=== PATIENT | female | born 2000 | race Caucasian/White ===

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

== ENCOUNTER 2019-08-23 22:02 | Emergency (ER) | payer OTHER ==
[2019-08-23] MEDS ORDERED: fentaNYL* 50 MCG/ML 2 ML VIAL (100 MCG VIAL) IV SLOW PU ONE ×2 (22:15→23:12)
--- NOTE | 2019-08-23 22:22 | ED ---
Lower Extremity - HPI Summary HPI Summary: The patient is a 19 y/o F arriving by ambulance to [facility] with a chief complaint of sudden onset pain and visible deformity of the right ankle onset tonight. She reports that she was playing volleyball when she jumped and landed incorrectly on her feet, immediately causing pain. In the ambulance, she initially declined medication and an ice pack was placed, but then the pain increased so EMS administered 50mcg Fentanyl. EMS notes distal pulses intact. Movement aggravates the pain, and the medication helped to mildly improve the pain. She is unable to bear weight on the ankle. Currently, the aching, sharp pain is rated 7/10 in severity. She denies any head injury or LOC. She last ate at 1900 tonight. No recent illnesses. LNMP: two weeks ago. PMHx: broken ankle ( unsure of which side), left ACL repair. Nonsmoker, no EtOH, no substance use. Medications reviewed. Allergies noted. - History of Current Complaint Chief Complaint: EDExtremityLower Stated Complaint: RT ANKLE INJURY PER EMS Time Seen by Provider: 08/23/19 22:15 Hx Obtained From: Patient Mechanism Of Injury: Other - jumped and landed on the ankle incorrectly Onset of Pain: Immediate Onset/Duration: Minutes Severity Initially: Moderate Severity Currently: Moderate Pain Intensity: 7 Pain Scale Used: 0-10 Numeric Timing: Lasting Minutes Location: Is Discrete @ - right ankle Character Of Pain: Sharp, Aching Associated Signs And Symptoms: Negative: Other - head injury, LOC Aggravating Factor(s): Movement Alleviating Factor(s): Ice, Other - Fentanyl 50mcg from EMS en route Able to Bear Weight: No - Allergies/Home Medications Allergies/Adverse Reactions: Allergies Allergy/AdvReac Type Severity Reaction Status Date / Time No Known Allergies Allergy Verified 08/23/19 22:14 PMH/Surg Hx/FS Hx/Imm Hx Endocrine/Hematology History: Denies: Hx Diabetes Respiratory History: Denies: Hx Asthma Musculoskeletal History: Reports: Hx of Fracture(s) - ankle (usure of which side ) Sensory History: Denies: Hx Legally Blind, Hx Deafness Opthamlomology History: Denies: Hx Legally Blind - Surgical History Surgical History: Yes Surgery Procedure, Year, and Place: left ACL repair Infectious Disease History: No Infectious Disease History: Denies: Traveled Outside the [place] in Last 30 Days - Family History Known Family History: Negative: Blood Disorder - Social History Alcohol Use: None Hx Substance Use: No Substance Use Type: Reports: None Hx Tobacco Use: No Smoking Status (MU): Never Smoked Tobacco Review of Systems - ROS Summary Review of Systems Summary: Home Medications Medication Instructions Recorded Confirmed Type NK [No Home Medications Reported] 09/24/18 08/23/19 History Positive: Other - pain in the right ankle with visible deformity Neurological: Other - Negative: head injury, LOC All Other Systems Reviewed And Are Negative: Yes Physical Exam - Summary Physical Exam Summary: General: Well-developed, Well-nourished female. Appears in moderate discomfort. HEENT: Normocephalic, Atraumatic. Eyes: Conjuctiva normal, PERRL. Ears: TMs within normal limits. Nares: (-) discharge, (-) erythema. Oropharynx: Clear, mucous membranes moist, (-) exudates. Neck: Soft, FROM, (-) lymphadenopathy, (-) thyromegaly, (-) JVD. Cardiovascular: Normal sinus rhythm, (-) murmur. Lungs: Clear to auscultation bilaterally (-) wheezes, (-) rales, (-) rhonchi. Abdomen: Soft, non-tender, non-distended, (-) organomegaly, normal bowel sounds. Back: (-) CVA tenderness Extremities: Right ankle was severely angulated with a bony protrusion laterally and tenting, Good pulses and capitally refill distally. No edema. Skin: Warm, dry, (-) rash. Neuro: Alert and oriented x3, no focal deficits. Psychiatric: Mood normal, affect normal. Triage Information Reviewed: Yes Vital Signs On Initial Exam: Initial Vitals Temp Pulse Resp BP Pulse Ox 99.2 F 76 18 137/92 98 08/23/19 22:03 08/23/19 22:03 08/23/19 22:03 08/23/19 22:03 08/23/19 22:03 Vital Signs Reviewed: Yes Procedures - Sedation Patient Received Moderate/Deep Sedation with Procedure: Yes Are You The Provider Who Administered The Sedation: Yes - Procedural Sedation/Analgesia Sedation Course: RT Present, Emergency Airway Equipment Available, Informed Consent Obtained, Time Out Completed, End-tidal Capnography Utilized Sedation Course Details: Patient given 50 mg Fentanyl and 5mg Versed, then given 5mg more Versed in increments of 1mg at a time and 50mg more of Fentanyl with achievement of adequate conscious sedation. Right ankle was reduced by Dr. Zaldivar. Splint applied. Adverse Reactions Experienced by Patient: None Mallampati Classification: Class I ASA Classification: Class I: Normal/Healthy Pre-Procedural Heart: S1 and S2 Pre-Procedural Lungs: Clear Auscultation Comment/Plan of Care: Patient was splinted. Post-reduction x-ray shows comminuted displaced fractures with better alignment of the right ankle, discharged home for follow up with orthopedics for surgery. Provider Procedure Attestation: With My Signature Below, I Attest to have Personally Reviewed and Agree with the Pre-Sedation History and Pre-Service Assessment Update Cleared for Moderate Sedation: Yes Pre-Procedural Diagnosis: trimalleolar right ankle fracture Post-Procedural Diagnosis: reduction of right ankle fracture dislocation Procedure: reduction of the dislocation of the right ankle Estimated Blood Loss: None Specimen(s): None Findings: None Implants/Tubes/Drains Placed: None Diagnostics - Vital Signs Vital Signs Temp Pulse Resp BP Pulse Ox 08/23/19 22:03 99.2 F 76 18 137/92 98 - Laboratory Result Diagrams: 08/23/19 22:23 08/23/19 22:23 Lab Statement: Any lab studies that have been ordered have been reviewed, and results considered in the medical decision making process. - Radiology R Ankle XR Radiology Interpretation Completed By: ED Physician Summary of Radiographic Findings: Angulated dislocated trimalleolar fracture of the right ankle. ED physician has reviewed and interpreted this report. Pending official read. R Ankle XR (post-reduction) Radiology Interpretation Completed By: ED Physician Summary of Radiographic Findings: Comminuted displaced fractures with better alignment of the right ankle. ED physician has reviewed and interpreted this report. Pending official read. - CT RLE CT CT Interpretation Completed By: Radiologist Summary of CT Findings: Impression: 1. Acute, mildly comminuted, complete, mildly displaced, intra-articular fracture of the medial aspect of the right distal tibial meta-epiphysis, with involvement of the medial malleolus and extension of the fracture into the medial aspect of the tibial plafond and diastases of up to 12 mm in improved alignment compared to the prior right ankle x-rays on 08/23/2019. 2. Acute, complete, minimally displaced transverse fracture of the right lateral malleolus in improved alignment compared to the prior right ankle x-rays on 08/23/2019. 3. Small avulsed bony fragment arising from the fibular attachment of the right anterior inferior tibiofibular ligament. ED physician has reviewed this report. Re-Evaluation - Re-Evaluation First Eval Re-Evaluation Time: 23:15 Change: Unchanged Comment: Patient is sedated for reduction procedure (see note). Second Eval Re-Evaluation Time: 01:00 Change: Improved Comment: Patient is awake following sedation. I have discussed results with the patient. Discussed symptoms that warrant immediate return to ED. Lower Extremity Course/Dx - Course Course Of Treatment: 19-year-old female with obvious fracture dislocation of the right ankle. Neurovascularly intact. Tenting noted. X-ray demonstrated trimalleolar fracture. Orthopedics consult. I provided conscious sedation after informed consent was obtained. Timeout obtained. Dr. Rios performed reduction of the fracture dislocation. Postreduction films were adequate. The patient was splinted by Dr. Rios. CT scan ordered. Patient discharged to home with crutches and pain medications. Follow-up with orthopedics for surgery. Follow-up sooner for any worsening symptoms. - Diagnoses Provider Diagnoses: Trimalleolar fracture of right ankle - Physician Notifications Discussed Care Of Patient With: Wallace Zaldivar - orthopedics Time Discussed With Above Provider: 22:45 Instructed by Provider To: Other - I discussed the patient's case with Dr. Zaldivar, and he will come into the ED to see the patient. He recommends conscious sedation for the dislocation reduction. Discharge ED - Sign-Out/Discharge Documenting (check all that apply): Patient Departure - Patient will be discharged home. - Discharge Plan Condition: Stable Disposition: HOME Patient Education Materials: Ankle Fracture (DC), Procedural Sedation (ED) Referrals: Wallace Zaldivar MD [Medical Doctor] - 1 Day [facility] - Tony THORPE [[facility], APPLICATION, OTHER] - 3 Days Additional Instructions: Dr. Zaldivar from orthopedics will contact you tomorrow to schedule an appointment based on your imaging results. Please follow up with your primary care physician within three days. Please return to ED for any new or worsening symptoms. - Billing Disposition and Condition Condition: STABLE Disposition: Home - Attestation Statements Document Initiated by Scribe: Yes Documenting Scribe: Glenna Mendoza Provider For Whom Nafisa is Documenting (Include Credential): Dr. Sherice Flores MD Scribe Attestation: IGlenna, scribed for Dr. Sherice Flores MD on 08/24/19 at 0240. Scribe Documentation Reviewed: Yes Provider Attestation: The documentation as recorded by the Glenna heredia accurately reflects the service I personally performed and the decisions made by me, Dr. Sherice Flores MD Status of Scribe Document: Viewed
[2019-08-23 22:29] LABS: ABS Lymphocytes 1.2 10^3/ul (1.0-4.8); ABS Monocytes 0.4 10^3/ul (0-0.8); Eosinophil % 0.3 %; Hematocrit 37 % (35-47); Hemoglobin 12.7 g/dL (12.0-16.0); Lymphocyte % 15.3 %; Mean Corpuscular HGB Conc 34 g/dL (31-36); Mean Corpuscular Hemoglobin 31 pg (27-31); Mean Corpuscular Volume 92 fL (80-97); Platelet Count 235 10^3/uL (150-450); Red Blood Count 4.07 10^6 /uL (3.70-4.87); Red Cell Distribution Width 14 % (10-15); White Blood Count 7.7 10^3/uL (3.5-10.8)
[2019-08-23 22:37] LABS: INR 1.15 (0.82-1.09)
[2019-08-23 22:46] LABS: ALT 11 U/L (7-52); AST 27 U/L (13-39); Albumin 4.6 g/dL (3.2-5.2); Albumin/Globulin Ratio 1.4 (1-3); Alkaline Phosphatase 49 U/L (34-104); Anion Gap 5 mmol/L (2-11); BUN/Creatinine Ratio 15.9 (8-20); Blood Urea Nitrogen 14 mg/dL (6-24); CO2 Carbon Dioxide 29 mmol/L (22-32); Calcium 9.9 mg/dL (8.6-10.3); Chloride 104 mmol/L (101-111); EGFR African American 99.1 (>60); EGFR Non-African American 81.9 (>60); Globulin 3.2 g/dL (2-4); Glucose 104 mg/dL (70-100); Potassium 3.8 mmol/L (3.5-5.0); Sodium 138 mmol/L (135-145); Total Protein 7.8 g/dL (6.4-8.9)
[2019-08-23 22:53] LABS: HCG Pregnancy < 0.60 mIU/mL
[2019-08-23] MEDS ORDERED: Flumazenil* 0.1 MG/ML 5 ML MDV ONE (22:57)
[2019-08-23] MEDS ORDERED: Naloxone* 0.4 MG/ML 1 ML VIAL ONE (22:57)
[2019-08-23] MEDS ORDERED: Midazolam* 1 MG/ML 5 ML VIAL (5 MG) IV SLOW PU ONE (23:13)
[2019-08-23] MEDS ORDERED: Midazolam* 1 MG/ML 5 ML VIAL (5 MG) ONE (23:30)
[2019-08-23] MEDS ORDERED: fentaNYL* 50 MCG/ML 2 ML VIAL (100 MCG VIAL) ONE (23:44)
--- NOTE | 2019-08-24 01:16 | CONS ---
CONSULTATION NOTE: DATE OF CONSULT: 08/23/19 - EMERGENCY DEPT. REASON FOR CONSULTATION: Right ankle fracture dislocation. HISTORY OF PRESENT ILLNESS: The patient is a 19-year-old woman, a yandel at [employer], originally from [place]; [facility], who injured her right ankle at 9:30 p.m. this evening, 08/23/19, while playing volleyball. No prior history of right ankle injury. The patient landed awkwardly and noticed severe pain and deformity of the right ankle. Came to emergency room. X-ray showed fracture dislocation and orthopedic surgery consult was called. PAST MEDICAL HISTORY: None. PAST SURGICAL HISTORY: Left ACL repair or reconstruction surgery. MEDICATIONS: None. ALLERGIES: No known drug allergies. SOCIAL HISTORY: The patient is a yandel, interested in exercise; science; and nutrition, originally from [place], plays intramural volleyball. FAMILY HISTORY: Noncontributory. REVIEW OF SYSTEMS: The patient described pain and swelling of the right ankle. She was describing tingling, with onset in the emergency room, in the right foot. No other injuries. Review of systems, otherwise, negative. PHYSICAL EXAMINATION: No acute distress, alert and oriented, appropriate mood and affect, appropriate dress and hygiene, well-coordinated bilateral upper and lower extremities with the exception of right lower extremity. Vital Signs: Body temperature 99.2 degrees Fahrenheit, heart rate 76, blood pressure 137/92, oxygen saturation 98% on room air, 18 respirations per minute. Right foot exam showed severe deformity, inversion type of the right ankle, difficult to determine level of swelling secondary to the severe bony deformity. Toes warm and well perfused. Sensation grossly intact. Pulses intact dorsalis pedis and posterior tibialis. IMAGING: X-rays, 2 views, of the right ankle show a severe right ankle fracture dislocation. Talus is dislocated medially and proximally. Distal fibular fracture is present. There is a medial malleolar fracture that is really a pilon fracture entering into the tibial weightbearing subchondral bone. No clear posterior malleolus fracture. ASSESSMENT: Right ankle fracture dislocation. PLAN: 1. Discussed diagnosis with the patient and that she will eventually require surgery, but that the ankle needed to be relocated to control pain and also to minimize the extensive soft tissue swelling that she will experience. 2. Procedure: The patient signed a written consent for both moderate sedation and a closed relocation maneuver, right ankle. Versed and fentanyl used by emergency room staff. Performed a reduction maneuver with traction and countertraction amongst other maneuvers. Easy relocation. Next, applied a splint with a posterior slab and then a sugar-tong slab and an overwrap with an Omi bandage. Once the splint had hardened, we obtained 2 x-rays that showed ankle well located in both planes, AP and lateral. Some displacement at each fracture site, but well-located ankle joint. I should state that after I relocated the ankle and before I placed the splint, I felt that the patient's toes were warm and well perfused, and pulses dorsalis pedis and posterior tibialis were brisk and intact. The patient stated that while the splint was hardening, the tingling went away that had been there previously. I noted just while holding the patient's reduction for the splinting that the ankle was very unstable and easily able to deform somewhat. 3. The patient will continue elevation of right ankle at all times. 4. The patient will go for a CT scan for preoperative planning, which will include 3D reconstructions. 5. The patient can be discharged home if she has sufficient support, social structure in place; otherwise, she will need to be admitted. 6. The patient will require at a minimum open reduction and internal fixation of lateral malleolus and pilon, medial malleolus fracture fragments. These likely will be done in approximately 1 week from now when the swelling has a chance to crest and then decrease. The patient will follow up with me in clinic late this week or early next week. [id number]/[facility] #: [id number] COY
[2019-08-24 02:46] VITALS: BP 107/61
== END 2019-08-24 02:05 | disposition home or self-care (01) ==
LOC: ED 22:02
DX: S82.851A Displaced trimalleolar fracture of right lower leg, initial encounter for closed fracture (principal); X50.0XXA Overexertion from strenuous movement or load, initial encounter; Y93.68 Activity, volleyball (beach) (court); Y92.9 Unspecified place or not applicable
CPT/HCPCS: 36415; 80053; 84702; 85025; 85610; 96374; 99284; J2250; J2310; J3010

== ENCOUNTER → 2019-08-30 11:23 | Day surgery (SDC) | payer OTHER ==
[~2019-08-30 11:23] MED LIST: Acetaminophen TAB* 325 MG ONE; Acetaminophen TAB* 325 MG PO ONE; Buffered Lidocaine 1% SYRIN* 1 ML/SYRINGE INTRADERM ONE; Bupivacaine 0.5%* 50 ML MDV VIAL ONE; Dexamethasone IV* 4 MG/ML 1 ML (4 MG) ONE; HYDROmorphone INJ1* 1 MG/ML SYRINGE IV PRN; HYDROmorphone INJ1* 1 MG/ML SYRINGE ONE; Ketorolac INJ* 30 MG/ML 1 ML VIAL IV PRN; Ketorolac INJ* 30 MG/ML 1 ML VIAL ONE; Lactated Ringers 1000 ML Bag* 1,000 ML IV SCH; Lidocaine 2% PF* 10 ML AMP ONE; Midazolam* 1 MG/ML 2 ML VIAL (2 MG) ONE; Naloxone* 0.4 MG/ML 1 ML VIAL IV PRN; Ondansetron INJ* 2 MG/ML VIAL IV PRN; Ondansetron INJ* 2 MG/ML VIAL ONE; PROCHLORPERAZINE INJ 5 MG/ML 2 ML VIAL IV PRN; Propofol* 10 MG/ML 20 ML BTL ONE; ROPIVACAINE 5 MG/ML 30 ML BTL (0.5%) ONE; Rocuronium* 10 MG/ML VIAL ONE; ceFAZolin 2 GM in NS PREMIX(*) 2 GM/100 ML BAG IVPB ONE; diPHENhydraMINE IV* 50 MG/ML 1 ml VIAL (BENADRYL) IV PRN; fentaNYL* 50 MCG/ML 2 ML VIAL (100 MCG VIAL) ONE; oxyCODONE TAB* 5 MG TAB PO PRN
--- NOTE | 2019-08-30 17:29 | OP ---
Operative Report - Blank - Operative Report Date of Operation: 08/30/19 Note: PATIENT: Alana Choudhury DATE OF : 2000 DATE OF SURGERY: 08/30/2019 SURGEON: Reinaldo Rios MD RETAIL [employer]AR ADVISOR: STEVEN Meza, whos assistance was necessary for positioning, retraction, help with instrumentation, and closure. ANESTHESIOLOGIST: Dr. Wilde PREOPERATIVE DIAGNOSIS: Right distal fibula fracture. Right distal tibial plafond fractures. Right ankle loose bodies. POSTOPERATIVE DIAGNOSIS: Right distal fibula fracture. Right distal tibial plafond fractures. Right ankle loose bodies. OPERATION: 1. Right distal fibula open reduction and internal fixation. 2. Right distal tibial plafond fractures open reduction and internal fixation 3. Right ankle arthroscopy with debridement and excision of loose bodies. ANESTHESIA: General + block IMPLANTS: Arthrex plates and screws and 4.0mm cannulated screws. TOURNIQUET TIME: Two hours with a well-padded thigh tourniquet at 250mmHg SPECIMENS: none ESTIMATED BLOOD LOSS: minimal COMPLICATIONS: none STATUS: Stable from the operating room to the recovery room and then home. INDICATIONS FOR PROCEDURE: Alana sustained fractures of the distal fibula and distal tibia, including displacement and comminution at the tibial plafond. Both operative and non operative treatment alternatives were reviewed. Further, the nature and risks of surgery were reviewed in careful detail, in the office as well as the pre- operative holding area. Our discussions regarding the risks of surgery included , but were not limited to, infection, wound problems, nerve injury, neuroma, RSD , persistent pain or symptoms, blood clot, nonunion, malunion, post-traumatic arthritis, hardware failure, failure of the surgery, and even the remote chance of catastrophic complication. DESCRIPTION OF PROCEDURE: The patient was seen in the preoperative holding unit and informed written consent was obtained. The appropriate extremity was marked. The patient was then brought to the operating room and carefully positioned on the operating room table. Anesthesia was induced. All bony prominences were padded with great care. A well-padded thigh tourniquet was placed. A chlorhexidine based pre- scrub was performed followed by a chloraprep prep and drape in standard sterile fashion. A surgical safety pause was then conducted in which we confirmed the appropriate patient, extremity, planned procedure, availability of equipment, indication and administration of prophylactic antibiotics, and DVT prophylaxis in the form of a compression boot on the non-surgical extremity. I began with Esmarch exsanguination of the limb and inflated the tourniquet. I then utilized a laterally based incision overlying the distal fibula. Great care was taken to protect the superficial peroneal nerve, which was not visualized within the field of view. I dissected down through the soft tissue layers to expose the distal fibula. I then exposed the fracture. Fracture hematoma was removed. I gained a reduction utilizing a pointed reduction clamp and then held this provisionally with K-wires. There was some comminution at the posterior fibula. I was able to get a good read off the anterior fibula, however. I placed an Arthrex anatomic distal fibula plate laterally and then confirmed the reduction and the position of the plate fluoroscopically. I placed screws to hold the plate to the bone. The provisional fixation was removed and then I again confirmed fluoroscopically the appropriate position of the plate and screw lengths. The wound was then copiously irrigated and closed in a layered fashion utilizing 3-0 Monocryl and 3-0 nylon. I then turned my attention medially. I made an approximately 12 cm medial longitudinal incision along the distal tibia. I opened the main fracture plane and removed. An extensive amount of hematoma. The large displaced, incarcerated fragment was freed up and then manually reduced to line up the joint surface. This was held provisionally with K wires. There were some small comminuted pieces that I removed. I then closed the main fracture plane and held this provisionally with K wires and a pointed reduction clamps. I then made an anterior medial ankle incision for a standard arthroscopy portal. The arthroscope was inserted into the ankle joint. I performed extensive debridement of hematoma within the joint. This provided me visualization of the joint surfaces. The tibial plafond appeared well reduced. There were some small loose bodies in the joint, which were excised. Since I was happy with the intra-articular appearance and reduction of the tibial plafond, I turned my attention back to the medial distal tibia incision. Guidewires for 4.0 mm cannulated screws were placed under fluoroscopic guidance in a rafting manner for the tibial plafond. The wires were then overdrilled and three 4.0 mm screws were placed. I then placed a one third semitubular buttress plate medially. Screws were placed in the plate. This provided nice compression to the vertical fracture. I then placed another 4.0 mm cannulated screw across the vertical fracture plane, providing further compression. Final fluoroscopic images were then obtained. At this point, we irrigated copiously and then closed in layers meticulously utilizing 3-0 Monocryl for the periosteal and subdermal layers and 3-0 nylon for the skin. A sterile dressing was then applied followed by a splint with the ankle in a neutral position. The patient was then awakened from anesthesia and transferred to the recovery room in stable condition. There were no complications. All needle and sponge counts were correct at the end of the case. ATTESTATION: I attest I was present and scrubbed and performed the critical portions of the procedure myself. POSTOPERATIVE PLAN: The postop plan is for [id number] for an anticipated duration of 8 weeks. Follow-up will be in 2 weeks. At that time we will likely transition into a [id number] short leg cast.
[2019-08-30 19:14] VITALS: BP 123/67
== END | disposition home or self-care (01) ==
LOC: OR 11:23
PROVIDERS: ATTEND Orthopaedic Surgery
DX: S82.301A Unspecified fracture of lower end of right tibia, initial encounter for closed fracture (principal); S82.61XA Displaced fracture of lateral malleolus of right fibula, initial encounter for closed fracture; M24.071 Loose body in right ankle; X50.0XXA Overexertion from strenuous movement or load, initial encounter; Y93.68 Activity, volleyball (beach) (court); Y92.318 Other athletic court as the place of occurrence of the external cause
CPT/HCPCS: 76000; 81025; A9270-GY; C1713; J0690; J1100; J1170; J1885; J2001; J2250; J2405; J2704; J2795; J3010; J3490